=== PATIENT | female | born 1955 | race Two or more races ===

== ENCOUNTER 2024-06-03 12:31 | Observation (INO) | payer OTHER ==
[2024-06-03 12:38] VITALS: BMI 29.2
[2024-06-03 14:54] LABS: BASO % 0.8 % (0-2.0); EOS % 3.3 % (0-4.5); HEMATOCRIT 39.9 % (32.4-45.2); HEMOGLOBIN 12.9 GM/dL (10.7-15.3); LYMPH % 38.6 % (8-40); MCHC 32.3 g/dl (32.0-36.0); MEAN CELL VOLUME 89.7 fl (80-96); MEAN PLT VOLUME 9.9 fl (7.5-11.1); MONO % 7.4 % (3.8-10.2); NEUT % 49.9 % (42.8-82.8); PLATELET COUNT 274 10^3/uL (134-434); RBC 4.45 M/mm3 (3.60-5.2); RDW 14.2 % (11.6-15.6); WHITE BLOOD COUNT 4.6 K/mm3 (4.0-10.0)
[2024-06-03 15:00] LABS: INR 1.03 (0.83-1.09); PROTHROMBIN TIME (PATIENT) 11.8 SEC (9.7-13.0)
[2024-06-03 15:03] LABS: ACTIVATED PTT 35.1 SECONDS (25.2-36.5)
[2024-06-03 15:19] LABS: POTASSIUM 4.6 mmol/L (3.5-5.1)
[2024-06-03 15:22] LABS: ALBUMIN 3.7 g/dl (3.4-5.0); BLOOD UREA NITROGEN 13.5 mg/dL (7-18); CALCIUM 9.5 mg/dL (8.5-10.1)
[2024-06-03 15:25] LABS: CREATININE 0.7 mg/dL (0.55-1.3)
[2024-06-03 15:26] LABS: BILIRUBIN,TOTAL 0.4 mg/dL (0.2-1); TOT PROT 7.1 g/dl (6.4-8.2)
[2024-06-03] MEDS ORDERED: ASPIRIN 325 MG ENTERIC COATED TABLET (FP) ONE (15:52)
[2024-06-03] MEDS: ASPIRIN 81 MG CHEWABLE TABLETS PO ONE (16:00)
[2024-06-03] MEDS ORDERED: ACETAMINOPHEN 325 MG TABLET (FP) ONE (16:01)
[2024-06-03] MEDS ORDERED: LIDOCAINE 5% TOPICAL PATCH ONE (16:01)
[2024-06-03] MEDS: LIDOCAINE 5% TOPICAL PATCH TP ONE (16:08)
[2024-06-03] MEDS: ACETAMINOPHEN 325 MG TABLET (FP) PO ONE (16:09)
[2024-06-03 20:42] VITALS: RESP 16
[2024-06-03] MEDS ORDERED: amLODIPine BESYLATE 5 MG TABLET (FP) ONE (23:17)
[2024-06-03] MEDS: LIDOCAINE PATCH REMOVAL MC SCH (23:26)
[2024-06-03] MEDS: amLODIPine BESYLATE 5 MG TABLET (FP) PO ONE (23:26)
[2024-06-04] MEDS: INSULIN ASPART SLIDING SCALE (NOVOLOG) 1 VIAL SQ SCH (06:26)
[2024-06-04 08:14] LABS: HEMATOCRIT 39.4 % (32.4-45.2); MCH 29.2 pg (25.7-33.7); MEAN CELL VOLUME 88.5 fl (80-96); MEAN PLT VOLUME 9.6 fl (7.5-11.1); PLATELET COUNT 252 10^3/uL (134-434); RBC 4.45 M/mm3 (3.60-5.2); RDW 13.9 % (11.6-15.6); WHITE BLOOD COUNT 5.1 K/mm3 (4.0-10.0)
[2024-06-04 08:32] LABS: POTASSIUM 4.3 mmol/L (3.5-5.1)
[2024-06-04 08:43] LABS: ALBUMIN 3.7 g/dl (3.4-5.0); BLOOD UREA NITROGEN 15.4 mg/dL (7-18)
[2024-06-04 08:45] LABS: CALCIUM 9.5 mg/dL (8.5-10.1); MAGNESIUM 2.1 mg/dL (1.8-2.4)
[2024-06-04 08:46] LABS: PHOSPHOROUS 4.3 mg/dL (2.5-4.9)
[2024-06-04 08:47] LABS: BILIRUBIN,TOTAL 0.4 mg/dL (0.2-1); TOT PROT 6.9 g/dl (6.4-8.2)
[2024-06-04] MEDS: amLODIPine BESYLATE 5 MG TABLET (FP) PO SCH (08:48)
[2024-06-04] MEDS: LOSARTAN POTASSIUM 50 MG TABLET PO SCH (08:48)
[2024-06-04] MEDS: HYDROCHLOROTHIAZIDE 25 MG TABLET (FP) PO SCH (08:48)
[2024-06-04 08:50] LABS: CREATININE 0.7 mg/dL (0.55-1.3)
[2024-06-04 09:07] LABS: CHOLESTEROL 160 mg/dL (50-200)
[2024-06-04 09:08] LABS: LDL CHOLESTEROL (ONLY SJRH) 87 mg/dL (5-100)
[2024-06-04 09:10] LABS: HDL CHOLESTEROL 58 mg/dL (40-60)
[2024-06-04 09:23] VITALS: BP 128/77; PULSE 68; TEMP 98
[2024-06-04] MEDS: ENOXAPARIN NA (PORCINE) 40 MG/0.4 ML DISP.SYRIN SQ SCH (09:53)
[2024-06-04] MEDS ORDERED: amLODIPine BESYLATE 10 MG TABLET (FP) PO SCH (12:40)
== END 2024-06-04 14:27 | disposition home or self-care (01) ==
LOC: JER 12:31 → JERBED 20:26
PROVIDERS: ADMIT Internal Medicine; ATTEND Nurse Practitioner
DX: I10 Essential (primary) hypertension (principal); E11.9 Type 2 diabetes mellitus without complications; I35.0 Nonrheumatic aortic (valve) stenosis; R07.9 Chest pain, unspecified; R51.9 Headache, unspecified
CPT/HCPCS: 36415; 71046-TC-FY; 80053; 80061; 82962; 83036; 83735; 83880; 84100; 84443; 84484; 85025; 85027; 85610; 85730; 93005; 93010; 93306-TC; 99285-25; G0378